=== PATIENT | male | born 1995 | race Caucasian/White ===

== ENCOUNTER 2017-02-13 13:03 | Emergency (ER) | payer OTHER ==
[~2017-02-13] VITALS: Ht 195.6 cm; Wt 90.7 kg
[2017-02-13] MEDS ORDERED: ACETAMINOPHEN 325 MG TAB PO ONE (14:45)
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
[2017-02-13 15:43] VITALS: BP 122/60
== END 2017-02-13 15:55 | disposition home or self-care (01) ==
LOC: M ED 14:48
DX: S61.411A Laceration without foreign body of right hand, initial encounter (principal); S70.02XA Contusion of left hip, initial encounter; V43.52XA Car driver injured in collision with other type car in traffic accident, initial encounter; Y92.410 Unspecified street and highway as the place of occurrence of the external cause; Y93.89 Activity, other specified; Y99.8 Other external cause status; F17.200 Nicotine dependence, unspecified, uncomplicated

== ENCOUNTER 2019-03-05 09:38 | Emergency (ER) | payer OTHER ==
[2019-03-05 09:39] VITALS: BP 137/82
--- NOTE | 2019-03-05 10:32 | REP ---
Right knee five views History: Pain There is no acute fracture or dislocation. The joint spaces are normal in appearance. Impression: There is no acute fracture or dislocation. Electronically Signed by Graham Bond MD 03/05/2019 10:23 A
== END 2019-03-05 10:57 | disposition home or self-care (01) ==
LOC: M ED 09:38
DX: S83.91XA Sprain of unspecified site of right knee, initial encounter (principal); X50.1XXA Overexertion from prolonged static or awkward postures, initial encounter; Y92.89 Other specified places as the place of occurrence of the external cause; M25.561 Pain in right knee; G89.29 Other chronic pain; F17.200 Nicotine dependence, unspecified, uncomplicated; Z87.828 Personal history of other (healed) physical injury and trauma